=== PATIENT | female | born 2000 | race African-American/Black ===

== ENCOUNTER 2024-10-31 16:00 | Observation (INO) | payer MEDICAID ==
[~2024-10-31] VITALS: Ht 157.5 cm; Wt 66.7 kg
--- NOTE | 2024-10-31 16:50 | DVH ---
BIOPHYSICAL PROFILE HISTORY: Term, possible SROM TECHNIQUE: Multiple transabdominal real-time grayscale sonographic images through the gravid uterus o f the fetus with duplex doppler color flow and M-mode spectral analysis FINDINGS: BIOPHYSICAL PROFILE: breathing score: 2 movement score: 2 tone score: 2 Quantitative FLO score: 2 (FLO: 10.9 cm.) Total score: 8/8 Single live fetus in cephalic presentation. heart rate 131 beats per minute. Grade 3 anterior placenta without previa or abruption Biophysical profile score 8/8 corresponding to an KEMAL of 10/31/24 IMPRESSION: Biophysical profile score: 8/8 Nuchal cord is visualized. Debris visualized in the fluid.
--- NOTE | 2024-10-31 17:57 | DVHDS2 ---
Discharge Summary Date of Admission Oct 31, 2024 at 16:00 Date of Discharge: Oct 31, 2024 Admitting Diagnosis Forty week contractions rule out labor Wounds: None Labs/Diagnostic Data: Laboratory Results Test 10/31/24 16:52 Placental Pylii-5-Hrdyxwjguzvwc Negative Brief Hx & Hospital Course: Patient presented with some contraction like pain abdominopelvic positive movement no leaking here to rule out labor. She labor was ruled out NST was performed and reactive Consults/Reason for consult None Operations or Procedures None NST was performed reactive Condition at Discharge: Good Final Diagnosis/Problems List 40 weeks stable reassurance labor precautions SROM precautions kick counts Discharge Disposition: Home Discharge Instruct/Medications Diet: Regular Activity: Light activity No Active Prescriptions or Reported Meds Discharge Statement: "Patient was advised to return to the ER or call 911 if any headaches, dizziness, shortness of breath, chest pain, abdominal pain, bleeding, fevers, or worsening of medical condition. Patient was counseled about treatment plan, medications, possible side effects, patientverbalized understanding. All questions were answered to the best of my ability. This discharge took greater then 30 minutes in planning, reviewing docu mentation, counseling the patient, and discussing with other team members." ASSESSMENT ASSESSMENT Assessment Visit Coding OBGYN Date of Service: Oct 31, 2024 Billing Provider: LISA RUIZ DO DRAG OUT WORKER Common Visit Codes: [id number] INP/OBS CARE(HIGH), 31021-EAU/OBS SAME DATE (LOW), 98359-AEL/OBS SAME DATE (MOD), 89898-EIL/OBS SAME DATE (HIGH) DRAG OUT WORKER Procedure Codes: 81192-34- NON-STRESS TEST LISA RUIZ DO Oct 31, 2024 17:57
== END 2024-10-31 17:40 | disposition home or self-care (01) ==
LOC: LDRP 16:00
PROVIDERS: ADMIT Obstetrics & Gynecology; ATTEND Obstetrics & Gynecology
DX: O62.9 Abnormality of forces of labor, unspecified (principal); Z3A.40 40 weeks gestation of pregnancy; Z79.899 Other long term (current) drug therapy
CPT/HCPCS: 59025; 76819; 81002; 84112; 94760; G0378

== ENCOUNTER 2024-11-01 14:34 | Observation (INO) | payer MEDICAID ==
[2024-11-01 16:03] LABS: Vaginal Bacteria Few; Vaginal Clue Cells None Seen; Vaginal Epithelial Cells None Seen; Vaginal Trichomonas Not Present
--- NOTE | 2024-11-01 22:26 | DVHDS2 ---
Discharge Summary Date of Admission Nov 01, 2024 at 14:44 Date of Discharge: Nov 01, 2024 Admitting Diagnosis contractions Labs/Diagnostic Data: Laboratory Results Test 11/01/24 15:04 Placental Uorak-2-Seeuzpdcrphsm Negative Vaginal WBC (Wet Prep) Few Vaginal RBC (Wet Prep) None seen Vaginal Epithelial Cells (Wet Prep) None seen Vaginal Bacteria (Wet Prep) Few Vaginal Trichomonas (Wet Prep) Not present Vaginal Yeast (Wet Prep) None seen Vaginal Clue Cells (Wet Prep) None seen Brief Hx & Hospital Course: NST performed and reactive , No sig contractions Condition at Discharge: Good Final Diagnosis/Problems List no labor Discharge Disposition: Home Discharge Instruct/Medications Diet: Regular Activity: No Restrictions, As Tolerated Follow Up/Referral: as scheduled. No Active Prescriptions or Reported Meds Discharge Statement: "Patient was advised to return to the ER or call 911 if any headaches, dizziness, shortness of breath, chest pain, abdominal pain, bleeding, fevers, or worsening of medical condition. Patient was counseled about treatment plan, medications, possible side effects, patientverbalized understanding. All questions were answered to the best of my ability. This discharge took greater then 30 minutes in planning, reviewing documentation, counseling the patient, and discussing with other team members." ASSESSMENT ASSESSMENT Assessment Visit Coding OBGYN Date of Service: Nov 01, 2024 Billing Provider: LISA RUIZ DO GROUT MACHINE TENDER Common Visit Codes: [id number] INP/OBS CARE(HIGH), 66997-UYL/OBS SAME DATE (LOW), 43401-SIO/OBS SAME DATE (MOD) GROUT MACHINE TENDER Procedure Codes: 88532-30- NON-STRESS TEST LISA RUIZ DO Nov 01, 2024 22:26
== END 2024-11-01 17:07 | disposition home or self-care (01) ==
LOC: UNDOADMOB 14:34 → LDRP 14:34
PROVIDERS: ADMIT Obstetrics & Gynecology; ATTEND Obstetrics & Gynecology
DX: O48.0 Post-term pregnancy (principal); O99.891 Other specified diseases and conditions complicating pregnancy; M54.9 Dorsalgia, unspecified; Z3A.40 40 weeks gestation of pregnancy; Z79.899 Other long term (current) drug therapy; Z98.890 Other specified postprocedural states
CPT/HCPCS: 59025; 81002; 84112; 87210; 94760; G0378

== ENCOUNTER 2024-11-02 12:07 | Inpatient (IN) | payer MEDICAID ==
[~2024-11-02] VITALS: Ht 154.9 cm; Wt 67.6 kg
[2024-11-02] MEDS ORDERED: BUTORPHANOL TARTRATE 2 MG/1 ML VIAL IV PRN ×2 (13:30)
[2024-11-02] MEDS ORDERED: LIDOCAINE 2%HCL (LOCAL ANESTH.) INJ 20ML MDV IJ PRN (13:30)
[2024-11-02 14:22] LABS: Hematocrit 36.0 % (36.0-46.0); Hemoglobin 12.1 g/dL (12.2-16.2); Mean Corpuscular Hemoglobin 29.1 pg (28.0-32.0); Mean Corpuscular Volume 87.0 fL (80.0-100.0); Nucleated Red Blood Cells % 0.1 %
[2024-11-02 14:38] LABS: INR 0.93 (0.9-1.15); Partial Thromboplastin Time 29.8 SEC (24.5-34.5); Prothrombin Time 9.9 sec (9.3-11.8)
[2024-11-02 14:43] LABS: Alanine Aminotransferase 11 U/L (7-40); Albumin 4.1 g/dL (3.2-4.8); Anion Gap 11 (5-15); BUN/Creatinine Ratio 10.3 (10.0-20.0); Calcium 9.7 mg/dL (8.7-10.4); Carbon Dioxide 22 mmol/L (20-31); Chloride 104 mmol/L (98-107); Glucose 86 mg/dL (74-106); Potassium 3.9 mmol/L (3.5-5.1); Sodium 137 mmol/L (136-145); Total Protein 6.8 g/dL (5.7-8.2)
[2024-11-02 14:44] LABS: Alkaline Phosphatase 182 U/L (46-116); Bilirubin, Total 0.3 mg/dL (0.2-1.0); Blood Urea Nitrogen 7 mg/dL (9-23)
[2024-11-02 14:56] LABS: Urine Protein, UAD TRACE (Negative)
[2024-11-02 15:08] LABS: Amphetamine Screen, Urine Neg (NEGATIVE); Barbiturate Scree,Urine Neg (NEGATIVE); Benzodiazephine Screen, Urine Neg (NEGATIVE); Cannabinoid Screen, Urine Neg (NEGATIVE); Cocaine Screen, Urine Neg (NEGATIVE); Opiate Scree,Urine Neg (NEGATIVE); Phencyclidine Screen, Urine Neg (NEGATIVE)
--- NOTE | 2024-11-02 17:11 | DVH ---
LIMITED OB ULTRASOUND > 14 WKS: HISTORY: Labor admission TECHNIQUE: Multiple real-time grayscale images of the gravid uterus with duplex Doppler color flow an d M-mode spectral analysis. TRANSDUCER: Transabdominal COMPARISON: None FINDINGS: IUP single live fetus at 38 weeks and 1 day based on composite averages of the BPD, head circumferenc e, abdominal circumference and femur length Estimated weight 3278 grams heart rate 129 beats per minute FLO 11.9 cm Cervix is not visualized Cephalic Presentation Anterior Placenta without previa or abruption. IMPRESSION: IUP single live fetus at 38 weeks and 1 day AUA corresponding to an KEMAL of 11/15/2024
--- NOTE | 2024-11-02 17:36 | DVHHP2 ---
OB CC & HPI Date Date of Admission: Nov 02, 2024 Patient Identification: : 4 Para: 0 EDC: Oct 25, 2024 EGA: 40.2wks Chief Complaints: Reason for admission: active labor History of Present Complaints 24yo IUP@40.2wks presents in active labor. Pt reports UCs Q5 min that started this morning. Denies LOF/VB/[place]/vision changes/RUQ pain. Endorses +FM. PNC: Routine PNC with Dr. Graf at [facility], adequate visits, PNC uncomplicated. GTT wnl, dating based on third trimester sono (late entry to care), GBS negative. OB hx: TAB x3 Past Medical History Cardiac: No pertinent Hx Pulmonary: No pertinent Hx Central Nervous System: No pertinent Hx GI: No pertinent Hx Hemotology/Oncology: No pertinent Hx Hepatobiliary: No pertinent Hx Psychiatric: No pertinent Hx Musculoskeletal: No pertinent Hx Rheumotologic: No pertinent Hx Infectious Disease: No peritnent Hx ENT: No pertinent Hx Renal/: No pertinent Hx Endocrine: No pertinent Hx Dermatology: No pertinent Hx Past Surgical History: No pertinent Hx OB History OB History Care: [facility] Ultrasounds: Normal mid trimester US Obstetrical Complications: None Medical Complications: None Allergies: Coded Allergies: Metronidazole (Verified Allergy, Intermediate, 10/31/24) Home Meds No Active Prescriptions or Reported Meds Home Meds PNV Current Medications Current Medications Medications (Trade) Dose Ordered Sig/Skyler Route PRN Reason Start Time Stop Time Status Last Admin Lactated Ringer's 1,000 ml @ 125 mls/hr Q8H IV 11/02/24 13:30 Witfabien Annie (Tucks) 1 pad PRN PRN TOP PERINEAL AREA DISCOMFORT 11/02/24 13:30 Sodium Lauryl Sulfate (Phisoderm) 240 ml PRN PRN TOP PERINEAL AREA DISCOMFORT 11/02/24 13:30 Benzocaine (Dermoplast) 1 applic PRN PRN TOP PERINEAL AREA DISCOMFORT 11/02/24 13:30 Butorphanol Tartrate (Stadol Injection) 1 mg Q4HPRN PRN IV MODERATE PAIN (4-6 PAIN SCALE) 11/02/24 13:30 Butorphanol Tartrate (Stadol Injection) 2 mg Q4HPRN PRN IV SEVERE PAIN (7-10 PAIN SCALE) 11/02/24 13:30 Lidocaine HCl (Xylocaine) 20 ml ONCE PRN IJ PERINEAL AREA DISCOMFORT 11/02/24 13:30 Family & Social History Family/Social History Past Family/Social History: denies Blood Type: A+ Rubella: not immune RPR/VDRL: Negative GBS Status: Negative HBsAG: Negative Review of Systems Constitutional: No symptom reported Ears, Nose, & Throat: No symptom reported Eyes: No symptom reported Pulmonary/Respiratory: No symptom reported Cardiovascular: No symptom reported Gastrointestinal: No symptom reported Genitourinary: No symptom reported Musculoskeletal: No symptom reported Skin: No symptom reported Psychiatric: No symptom reported Endocrine: No symptom reported Hemotologic/Lymphatic: No symptom reported OB Admission Exam Physical Exam Vitals: VSS, see CPN [place] [address] Ph: [phone] DIAGNOSTIC IMAGING Diagnostic Imaging Report : [id number] Signed PATIENT: BASIL DE LEON ACCT: [id number] UNIT: [id number] : 2000 LOC: [facility] ROOM / BED: [address] AGE / SEX: 24 / F ADM STATUS: ADM IN SERVICE 1417 ORDERING PHYSICIAN: EMMA ALTAMIRANO CNM PROCEDURE(s): OBUS - OB ULTRASOUND COMP GTR 14 WKS REASON: Labor admission ORDER NUMBER(s): [id number], ACCESSION NUMBER(s): [id number] LIMITED OB ULTRASOUND > 14 WKS: HISTORY: Labor admission TECHNIQUE: Multiple real-time grayscale images of the gravid uterus with duplex Doppler color flow and M-mode spectral analysis. TRANSDUCER: Transabdominal COMPARISON: None FINDINGS: IUP single live fetus at 38 weeks and 1 day based on composite averages of the BPD, head circumference, abdominal circumference and femur length Estimated weight 3278 grams heart rate 129 beats per minute FLO 11.9 cm Cervix is not visualized Cephalic Presentation Anterior Placenta without previa or abruption. IMPRESSION: IUP single live fetus at 38 weeks and 1 day AUA corresponding to an KEMAL of 11/15/2024 ATED BY: ENRRIQUE STEWART MD DICTATED DATE/TIME: 11/02/241708 SIGNED BY: ENRRIQUE STEWART MD SIGNED DATE/TIME: 11/02/241708 CC: HEENT: TMs Normal, Fontanelles Normal, Nasal Mucosa Normal, Eyes non-injected, Oropharynx Normal, PERRLA, Moist Membranes, EOMI Heart: Rhythm Normal Lungs: Clear Abdomen: Gravid Extremities: Normal Reflexes: Normal Pelvic Exam: SVE by RN: 5/90/-2 Membranes: Intact Heart Rate: 120's Accelerations: Accelerations Present Decelerations: No Decelerations Fpc Variability: Average (6-25) Frequency of Contractions: q2-7 min Intensity: Moderate OB Plan Plan Admitting Diagnosis: Active Labor Plan: Other (pitocin augmentation) Other Plan: A: 24yo IUP@40.2wks Pitocin augmentation Category I EFM Intact Membranes GBS negative P: Admit to L&D Informed consent obtained Discussed risks, benefits, alternatives of pitocin augmentation with pt. Pt consents to it. monitoring per order Routine labs ordered Pain mgmt PRN Frequent position changes in and out of bed encouraged Limit SVE unless necessary Intrauterine resuscitation PRN Anticipate CNM will consult with Dr. Graf PRN Visit Coding OBGYN Date of Service: Nov 02, 2024 Billing Provider: EMMA ALTAMIRANO CNM PEST CONTROL TECHNICIAN Common Visit Codes: 91736-[id number] INP/OBS CARE (MOD) PEST CONTROL TECHNICIAN Procedure Codes: 79604-06- NON-STRESS TEST EMMA ALTAMIRANO CNM Nov 02, 2024 17:36
[2024-11-02] MEDS ORDERED: TERBUTALINE SULFATE 1 MG/ML 1ML VIAL SC PRN (17:45)
[2024-11-02] MEDS ORDERED: ONDANSETRON HCL 4 MG/2 ML VIAL IV PRN (17:45)
[2024-11-02] MEDS: NALBUPHINE HCL 10 MG/1ml INJECTION IV PRN (20:03)
[2024-11-02] MEDS: LACTATED RINGER'S 1,000 ML IV SCH (21:30)
[2024-11-02] MEDS: LACT. RINGERS/OXYTOCIN 20UNITS 1,000 ML IV SCH (22:32)
[2024-11-02] MEDS: WITCH HAZEL-GLYCERIN PAD TOP PRN (22:37)
[2024-11-02] MEDS: PHISODERM TOP SOLN 240ML BTL TOP PRN (22:38)
[2024-11-02] MEDS: DERMOPLAST 60ML BOTTLE TOP PRN (22:38)
--- NOTE | 2024-11-03 00:43 | DVHPN2 ---
CNM Labor Progress Note Date and Time Seen Date Seen: Nov 03, 2024 Time Seen: 00:10 Subjective Patient reports: Feels worse Subjective Comment Pt requesting second dose of nubain IV. consents to SVE before. Objective Vital Signs VSS, see chart (false elevated BPs were during a UC when pt was griping the comb in the her hand) Monitoring Method Monitoring Method: External Heart Rate Heart Rate Baseline: 120 Heart Rate Variability: Moderate Presence of FHR Accelerations: Yes Presence of FHR Decelerations: No Are all 5 Components of the FH: Yes Contractions Contractions Frequency: Other (q2-3 min) Duration of Contraction: 80 Contractions Intensity: Moderate Contractions Resting Tone: Relaxed Membranes Membranes: Intact Vaginal Exam Vag Exam Deferred: No Vaginal Exam Dilation: 7 Vaginal Exam Effacement: 90 Vaginal Exam Station: +1 Vaginal Exam Presentation: VTX Vaginal Exam Show: Small Medications Medications - Pitocin: Yes (6mu) Medication - Epidural: No Medication - Other s/p 1 dose of nubain IVP Lab Results Lab Results Vital Signs Date Time Temp Pulse Resp B/P (MAP) Pulse Ox O2 Delivery O2 Flow Rate FiO2 11/03/24 00:21 102 18 135/70 Current Medications Medications (Trade) Dose Ordered Sig/Skyler Start Time Stop Time Status Last Admin Dose Admin Lactated Ringer's 1,000 ml @ 125 mls/hr Q8H 11/02/24 13:30 11/03/24 00:31 125 MLS/HR Witfabien Armendarizel (Tucks) 1 pad PRN PRN 11/02/24 13:30 11/02/24 22:37 1 PAD Sodium Lauryl Sulfate (Phisoderm) 240 ml PRN PRN 11/02/24 13:30 11/02/24 22:38 240 ML Benzocaine (Dermoplast) 1 applic PRN PRN 11/02/24 13:30 11/02/24 22:38 1 APPLIC Butorphanol Tartrate (Stadol Injection) 1 mg Q4HPRN PRN 11/02/24 13:30 Butorphanol Tartrate (Stadol Injection) 2 mg Q4HPRN PRN 11/02/24 13:30 Lidocaine HCl (Xylocaine) 20 ml ONCE PRN 11/02/24 13:30 Oxytocin 1,000 ml @ 6 ml/hr Q24H 11/02/24 17:45 11/02/24 22:32 6 ML/HR Terbutaline Sulfate (Brethine Inj) 0.25 mg ONCE PRN 11/02/24 17:45 Nalbuphine HCl (Nubain) 10 mg Q4HP PRN 11/02/24 17:45 11/03/24 00:21 10 MG Ondansetron HCl (Zofran) 4 mg Q6HPRN PRN 11/02/24 17:45 Laboratory Tests Test 11/03/24 01:20 11/02/24 14:05 11/02/24 13:45 Range/Units Urine Creatinine Pending Urine Protein/Creatinine Ratio Pending Urine Total Protein Pending White Blood Count 11.3 H 4.4-10.8 10^3/uL Red Blood Count 4.14 4.0-5.20 10^6/uL Hemoglobin 12.1 L 12.2-16.2 g/dL Hematocrit 36.0 36.0-46.0 % Mean Corpuscular Volume 87.0 80.0-100.0 fL Mean Corpuscular Hemoglobin 29.1 28.0-32.0 pg Mean Corpuscular Hemoglobin Concent 33.5 32.0-36.0 g/dL Red Cell Distribution Width 14.5 H 11.8-14.3 % Platelet Count 268 140-450 10^3/uL Mean Platelet Volume 8.2 6.9-10.8 fL Neutrophils (%) (Auto) 78.5 37.0-80.0 % Lymphocytes (%) (Auto) 11.6 10.0-50.0 % Monocytes (%) (Auto) 8.2 0.0-12.0 % Eosinophils (%) (Auto) 1.5 0.0-7.0 % Basophils (%) (Auto) 0.2 0.0-2.0 % Neutrophils # (Auto) 8.9 H 1.6-8.6 10 ^3/uL Lymphocytes # (Auto) 1.3 0.4-5.4 10 ^3/uL Monocytes # (Auto) 0.9 0-1.3 10 ^3/uL Eosinophils # (Auto) 0.2 0-0.8 10 ^3/uL Basophils # (Auto) 0 0-0.2 10 ^3/uL Nucleated Red Blood Cells 0.1 % Prothrombin Time 9.9 9.3-11.8 sec Prothrombin Time INR 0.93 0.9-1.15 Activated Partial Thromboplast Time 29.8 24.5-34.5 SEC Sodium Level 137 136-145 mmol/L Potassium Level 3.9 3.5-5.1 mmol/L Chloride Level 104 98-107 mmol/L Carbon Dioxide Level 22 20-31 mmol/L Anion Gap 11 5-15 Blood Urea Nitrogen 7 L 9-23 mg/dL Creatinine 0.68 0.550-1.02 mg/dL Glomerular Filtration Rate Calc 124 >90 mL/min BUN/Creatinine Ratio 10.3 10.0-20.0 Serum Glucose 86 74-106 mg/dL Calcium Level 9.7 8.7-10.4 mg/dL Total Bilirubin 0.3 0.2-1.0 mg/dL Aspartate Amino Transferase (AST) 17 13-40 U/L Alanine Aminotransferase (ALT) 11 7-40 U/L Alkaline Phosphatase 182 H 46-116 U/L Total Protein 6.8 5.7-8.2 g/dL Albumin 4.1 3.2-4.8 g/dL Treponema pallidum Antibody Non-reactive Negative Urine Color Light-yellow Yellow Urine Clarity Turbid H Clear Urine pH 7.0 5.0-9.0 Urine Specific [place] 1.019 1.001-1.035 Urine Protein Trace H Negative Urine Ketones Negative Negative Urine Blood Negative Negative /uL Urine Nitrite Negative Negative Urine Bilirubin Negative Negative Urine Urobilinogen Normal Negative mg/dL Urine Leukocyte Esterase 2+ Negative /uL Urine RBC 3 0 - 4 /hpf Urine Microscopic WBC 36 H 0-5 /HPF Urine Squamous Epithelial Cells Mod <5 /hpf Urine Bacteria None seen None Seen /hpf Urine Mucus Few None Seen Urine Glucose Normal Normal mg/dL Urine Opiates Screen Neg NEGATIVE Urine Fentanyl Screen Neg NEGATIVE Urine Barbiturates Screen Neg NEGATIVE Urine Phencyclidine Screen Neg NEGATIVE Urine Amphetamines Screen Neg NEGATIVE Urine Benzodiazepines Screen Neg NEGATIVE Urine Cocaine Screen Neg NEGATIVE Urine Cannabinoids Screen Neg NEGATIVE Assessment Assessment A: 24yo IUP@40.3wks Pitocin augmentation Category I EFM Intact Membranes GBS negative Plan Plan P: Continue with pitocin IV titration per policy monitoring per order Pain mgmt PRN Frequent position changes in bed encouraged Limit SVE unless necessary Intrauterine resuscitation PRN Anticipate CNM will consult with Dr. Graf PRN Plan discussed with: Patient, Other (family) Visit Coding OBGYN Date of Service: Nov 03, 2024 Billing Provider: EMMA ALTAMIRANO CNM GRAPPLER Common Visit Codes: [id number] INP/OBS CARE(MOD) EMMA ALTAMIRANO CNM Nov 03, 2024 00:43
[2024-11-03 02:15] LABS: Protein, Urine < 6.0 mg/dL (1-14)
[2024-11-03] MEDS ORDERED: LACT. RINGERS/OXYTOCIN 20UNITS 500 ML IV ONE ×2 (08:45→09:15)
[2024-11-03] MEDS ORDERED: ONDANSETRON ODT 4 MG TAB PO PRN (08:45)
[2024-11-03] MEDS: METHYLERGONOVINE MALEATE 0.2 MG/ML AMP IM ONE (08:51)
[2024-11-03] MEDS: IBUPROFEN 600 MG TAB PO PRN (09:34)
--- NOTE | 2024-11-03 13:40 | LDN2 ---
Labor and Delivery Note Date 11/03/24 Age 24 4 Para 1 AB 3 EDC 7-7 EGA 40wks Diagnosis iup at 40+wks Vaginal Delivery: VTX Vacuum Assisted: No Placenta: Spontaneous Sex: Male (3710 gram ) Weight 3170g Apgars 8-9 Nuchal Cord Transected: No Amniotic Fluid: Clear Anesthesia xylocaine Episiotomy: Yes Extension: Yes (midline epis with 2nd deg perineal lac) Repaired with 2-0 chromic EBL 300ml Labs Blood Bank 11/02/24 14:05: Blood Type A POSITIVE Complications none Conditions stable Comments/Significant Med Matthew spec exam no cxal lac,due to poor pushing effort and decels permission was taken from pt to do episotomy .pt fully informed about episotommy .midline epis was made and repair was done afterwards . Visit Coding OBGYN Date of Service: Nov 03, 2024 Billing Provider: DANNA FIGUEREDO DO CORN SHREDDER Common Visit Codes: 86611-KPPUVII OBS CARE (HIGH) CORN SHREDDER Procedure Codes: 90332-MEH DELIVERY ONLY DANNA FIGUEREDO DO Nov 03, 2024 13:40
[2024-11-03 15:00] VITALS: BP 108/65; PULSE 85; RESP 14; TEMP 98.8; O2SAT 97
[2024-11-03 19:30] VITALS: BP 103/56; PULSE 76; RESP 16; TEMP 98.3; O2SAT 99
[2024-11-03] MEDS: DOCUSATE SOD 100 MG CAP PO SCH (22:13)
[2024-11-03] MEDS: ACETAMINOPHEN 325 MG TAB PO PRN (22:14)
[2024-11-03 23:00] VITALS: BP 96/54; PULSE 86; RESP 16; TEMP 98.5; O2SAT 99
[2024-11-03] MEDS ORDERED: PREN-96 PO (23:57)
[2024-11-03] MEDS ORDERED: IBUP-1456 PO (23:57)
[2024-11-03] MEDS ORDERED: DOCU-265 PO (23:57)
--- NOTE | 2024-11-04 00:04 | DVHPN2 ---
Progress Note Date Seen: Nov 04, 2024 Subjective S: bleeding is less, eating food without issues, denies lightheaded/dizziness, pain well controlled with oral medications, no concerns with urinating, passing flatus, no BM yet, ambulating well, and formula vital signs Vital Sign Date Time Temp Pulse Resp B/P (MAP) Pulse Ox O2 Delivery O2 Flow Rate FiO2 11/03/24 19:30 98.3 76 16 103/56 (72) 99 98.3 11/03/24 19:30 Room Air 11/03/24 11:30 0.0 Total Intake and Output 11/03/24 11/03/24 11/04/24 15:00 23:00 07:00 Output Total 1150 ml Balance -1150 ml medications Current Medications Medications Dose Ordered Sig/Skyler Route Start Time Stop Time Status Last Admin Dose Admin Caity Valencia 1 pad PRN PRN TOP 11/02/24 13:30 11/02/24 22:37 1 PAD Sodium Lauryl Sulfate 240 ml PRN PRN TOP 11/02/24 13:30 11/02/24 22:38 240 ML Benzocaine 1 applic PRN PRN TOP 11/02/24 13:30 11/02/24 22:38 1 APPLIC Butorphanol Tartrate 1 mg Q4HPRN PRN IV 11/02/24 13:30 Cancel Butorphanol Tartrate 2 mg Q4HPRN PRN IV 11/02/24 13:30 Cancel Lidocaine HCl 20 ml ONCE PRN IJ 11/02/24 13:30 Cancel Terbutaline Sulfate 0.25 mg ONCE PRN SC 11/02/24 17:45 Cancel Nalbuphine HCl 10 mg Q4HP PRN IV 11/02/24 17:45 11/03/24 00:21 10 MG Ondansetron HCl 4 mg Q6HPRN PRN IV 11/02/24 17:45 Ibuprofen 600 mg Q6HP PRN PO 11/03/24 08:45 11/03/24 18:44 600 MG Acetaminophen 650 mg Q4HP PRN PO 11/03/24 08:45 11/03/24 22:14 650 MG Ondansetron HCl 4 mg Q4HPRN PRN PO 11/03/24 08:45 UNV Docusate Sodium 200 mg HS PO 11/03/24 22:00 11/03/24 22:13 200 MG laboratory and microbiology Laboratory Tests 11/02/24 14:05 Test 11/02/24 14:05 Range/Units Serum Glucose 86 74-106 mg/dL Objective O: VSS Chest: heart sounds normal and lung sounds clear bilaterally Abd: soft, non-tender, fundus at U/firm/midline, active bowel sounds, no rebound or guarding Perineum: sutures intact, edges well approximated, no erythema/edema noted Ext: Non-tender, No edema, 2+ BLE DTRs Lochia: minimal See lab results Problems(with codes): (1) (normal spontaneous vaginal delivery) (2) At risk for infection associated with episiotomy (3) Precipitous drop in hematocrit Assessment/Plan A: 24yo now PPD#1 s/p with MLE Anemia Rh+ Breast and formula feeding P: D/C home today Rx sent to pharmacy precautions and preeclampsia warning signs reviewed F/U with [facility] office in 2 weeks Plan discussed with: Patient, Other (family) Visit Coding OBGYN Date of Service: Nov 04, 2024 Billing Provider: EMMA ALTAMIRANO CNM CRUSHING MILL OPERATOR Common Visit Codes: [id number] INP/OBS CARE(MOD) EMMA ALTAMIRANO CNM Nov 04, 2024 00:04
--- NOTE | 2024-11-04 00:04 | DVHDS2 ---
Obstetrics Discharge Summary Obstetrics Discharge Summary Date of Admission: Nov 02, 2024 Date of Discharge: Nov 04, 2024 Reason For Admission: Onset of Labor Procedures: NST, Ultrasound Intrapartum Procedures: Spontaneous vaginal deliv, Episiotomy Procedures: Hct/date: (11/04/24), Hgb/date: (11/04/24) Operative Complicat: Laceration (midline epis with 2nd deg perineal lac) Discharge Diagnosis: Term -Delivered Discharge Information: Activity (as tolerated, no heavy lifting and nothing in the vagina for 6 weeks), Diet (Routine), Medications (Rx sent), Instructions (Routine), Discharge to (Home), Accompanied by (family), Discarge date (11/04/24) Visit Coding OBGYN Date of Service: Nov 04, 2024 Billing Provider: EMMA ALTAMIRANO CNM INSURANCE UNDERWRITING ASSISTANT Common Visit Codes: 31127-RFY/OBS DISCH DAY <30MIN EMMA ALTAMIRANO CNM Nov 04, 2024 00:04
[2024-11-04 03:30] VITALS: BP 110/60; PULSE 76; RESP 16; TEMP 98.7; O2SAT 99
[2024-11-04 06:56] VITALS: BP 101/62; PULSE 80; RESP 16; TEMP 98.8; O2SAT 99
[2024-11-04 09:33] LABS: Hematocrit 31.6 % (36.0-46.0); Hemoglobin 10.4 g/dL (12.2-16.2); Mean Corpuscular Hemoglobin 29.4 pg (28.0-32.0); Mean Corpuscular Volume 88.7 fL (80.0-100.0); Nucleated Red Blood Cells % 0.0 %
[2024-11-04 11:24] VITALS: BP 99/64; PULSE 73; RESP 14; TEMP 98.1; O2SAT 98
[2024-11-04 13:15] VITALS: BP 101/65; PULSE 76; RESP 16; TEMP 97.9; O2SAT 97
== END 2024-11-04 13:38 | disposition home or self-care (01) | DRG 560 ==
LOC: LDRP 12:07 → OBSVTOIN 13:23 → LDRP 11-03 13:32
PROVIDERS: ADMIT Obstetrics & Gynecology; ATTEND Obstetrics & Gynecology
PROC: 10E0XZZ Delivery of Products of Conception, External Approach (ICD-10-PCS; principal; 2024-11-03)
PROC: 0W8NXZZ Division of Female Perineum, External Approach (ICD-10-PCS; 2024-11-03)
PROC: 10907ZC Drainage of Amniotic Fluid, Therapeutic from Products of Conception, Via Natural or Artificial Opening (ICD-10-PCS; 2024-11-03)
DX: O48.0 Post-term pregnancy (principal); Z37.0 Single live birth; R71.0 Precipitous drop in hematocrit; O70.1 Second degree perineal laceration during delivery; Z3A.40 40 weeks gestation of pregnancy; O90.81 Anemia of the puerperium
CPT/HCPCS: 36415; 59025; 59409; 76805; 80053; 80307; 81001; 81002; 82570; 84156; 85025; 85610; 85730; 86780; 86850; 86900; 86901; 94762; 96360; 96361; 96365; 96366; 96375; G0378; J2590